=== PATIENT | female | born 1970 | race Caucasian/White ===

== ENCOUNTER 2020-11-24 05:50 | Day surgery (SDC) | payer SELFPAY, OTHER ==
[2020-11-17 11:54] LABS: Hematocrit 34.7 % (37-47); Hemoglobin 11.2 g/dL (12.0-15.0); Mean Corp Hgb Conc 32.3 g/dL (32-36); Mean Corpuscular Hgb 30.1 pg (27.0-32.0); Mean Corpuscular Volume 93.3 fL (81-99); Mean Platelet Vol. 10.4 fl (6.2-12.0); Platelet Count 290 K/mm3 (150-450); RBC Distribution Width CV 13.4 % (11.6-14.6); RBC Distribution Width SD 46.4 fl (35.1-43.9); Red Blood Count 3.72 M/mm3 (4.2-5.4); White Blood Count 4.7 K/mm3 (4.4-11.0)
[2020-11-17 12:02] LABS: Partial Thromboplast Time 25.7 Seconds (24.1-36.2); Prothrombin Time (Protime)PT. 12.2 SECONDS (11.7-14.9)
[2020-11-17 12:31] LABS: Internal QC Validated? YES +Cl - CLEAR BKGD; Pregnancy, Serum, hCG Quali. NEGATIVE Negative
[2020-11-17 12:39] LABS: Follicle Stimulating Hormone 11.4 mIU/mL; Thyroid Stim Hormone (TSH) 3.33 uIU/mL (0.358-3.74)
--- NOTE | 2020-11-23 22:17 | PCM.HP.BLA ---
History and Physical Date of Admission: 11/24/20 Surgical History and Physical Carrie Martines, a 50 year old female 3 1 0 0 4, presents for HTA, Hysteroscopy and D and C on November 24, 2020 at 7:30. -- Menorrhagia -- Very heavy bleeding during menses, and typically bleeds 7-10 days but has had several episodes of 4-6wks of continual bleeding. She notes some Shortness of Breath with exertion, palpitations, and difficulty with critical thinking. Menorrhagia which began approx 3yrs ago. Carrie claims it started gradually and has been present constantly for 3 years. It occurs intermittantly. Carrie characterizes the quality cramping. Severity is moderate but now worsening. Associated signs and symptoms are excessive bleeding, heart palpitations, dizziness.; Associated signs and symptoms are weak feeling; recent Hgb 11.6. Additional comments are: EMBx recently normal; pelvic u/s without polyps or fibroids but approx 2 cm EM lining. MEDICATIONS HISTORY: Patient is also takin. hydrochlorothiazide 25 mg tablet, As Directed 2. hydroxyzine HCl 25 mg tablet, As Directed ALLERGIES: No Known Drug Allergies Infections - Chicken pox childhood Illnesses - hypertension Hospitalizations - see surgery Review of Systems: GENERAL - Denies fever, or chills SKIN - Denies skin changes EYES - Denies visual changes EARS - Denies difficulty hearing NOSE - Denies nasal congestion or bleeding MOUTH - Denies sore throat or difficulty swallowing NECK - Denies pain or swelling RESPIRATORY - Denies shortness of breath or wheezing CARDIOVASCULAR - Denies palpitations or chest pain GASTROINTESTINAL - Denies nausea, vomiting, diarrhea, constipation GENITOURINARY - Denies dysuria, frequency of urination, incontinence of urine MUSCULOSKELETAL - Denies joint or muscle pain NEUROLOGICAL - Denies localized numbness or weakness PSYCHIATRIC - Denies depression or anxiety ENDOCRINE - Denies heat or cold intolerance, weight loss or gain HEMATO-IMMUNOLOGIC - Denies excesive bleeding with cuts SOCIAL HISTORY: Alcohol Use - denies drinking Smoking - denies smoking Diet - balanced Diet Lifestyle - moderate stress lifestyle and Exercise - active Seat Belt Use - occasional Employer - Unemployed Job Description - Housewife Illicit Drug Use - denies use of street drugs Sexual Activity - Spouse-Sig Other Name - Jj Spouse-Sig Other Occupation - [employer] Children Name(s) - 4 children Control - NONE FAMILY HISTORY: MENSTRUAL HISTORY: LMP Known?- YesAmount/Duration - excess amount, Regularity - bleeds between periods, Frequency - variable days, LMP - 11/17/20 PAST PREGNANCIES: Total Pregnancies - 4; Full Term Pregnancies - 3; Premature - 1; Abortions, Induced - 0; Abortions, Spontaneous - 0; Ectopics - 0; Multiple Births - 0; Living Children - 4 SURGICAL HISTORY: 1. 07/07/1986 2. 02/26/1990 3. 06/03/1992 4. 08/25/1993 5. cholecystectomy 6. Laparoscopic Back Surgery, L5 disc PHYSICAL EXAM BP- 140/84 Sitting, Right arm, regular cuff Weight- 173.43812 lbs Height- 69 inch BMI:25.60 CONSTITUTIONAL - NAD, well nourished, and well developed SKIN - No rash, lesions, or ulcers HEENT - Normocephalic, PERRLA, EOMI NECK - No nodes, no nuchal rigidity and thyroid normal size and texture LYMPH NODES - Palpation of lymph nodes in neck and groins within normal limits LUNGS - CTA x2 without wheezes, crackles or rales CARDIAC - Regular rate and rhythm without rubs, murmurs, or gallops ABDOMEN - Without hepatosplenomegaly, distention, masses, rebound, or guarding; normal bowel sounds; no hernias EXTREMITIES - No edema or calf tenderness NEUROLOGICAL - Cranial nerves II-XII grossly intact PSYCHIATRIC - A and O to time, place, person, mood and affectt ASSESSMENT/PLAN: 1. Premenopause Menorrhagia Reviewed EMBx and U/S. Discussed options for treatment and plan to proceed with Dx H/S, D and C and HTA. Discussed RBAs and all questions answered.
[2020-11-24] VITALS (7 sets, daily range): BP systolic 113–139; BP diastolic 68–88; PULSE 52–68; RESP 16; TEMP 36.1–36.6; O2SAT 97–100; BMI 25.0
--- NOTE | 2020-11-24 | EMB_PTH ---
PATIENT: ARLETTE KESSLER [place] [facility] [id number] AGE/SX: 50/F ROOM: RE11/24/[address]: Dr. Romeo Guidry MD : 1970 BED: DIS: 11/24/2020 SPEC #: [id number] RECD: 11/24/20 10:31 STATUS: GUIDO REQ #: [id number] PABLO: 11/24/20 00:[address]: Romeo Guidry DEPT: SURGICAL PATHOLOGY RECD BY: Richard Cao ENTERED: 11/24/20 10:31 SP TYPE: ENDOM BX/C OTHR DR: Dr. Renetta Garcia, DO Tissues: Endometrium, NOS Procedures: Surgery Specimen Level IV HEADER OPERATION: Hysteroscopy, D & C, hydrothermal ablation PRE-OP DIAGNOSIS: Menorrhagia TISSUE SUBMITTED: Endometrial curettings MICROSCOPIC DIAGNOSIS Endometrial curettings: Proliferative endometrium. Fragments of benign endocervical mucosa. SJ:heidi 11/25/2020 MICROSCOPIC DESCRIPTION Slides are reviewed. GROSS DESCRIPTION Received in fixative is one container labeled with the patient's name and designated endometrial curettings. The specimen consists of multiple fragments of pink hemorrhagic soft tissue that in aggregate measure 3 x 2.5 x 0.3 cm. The specimen is totally submitted in one cassette. / LEONARD:heidi 11/24/20 TC:4 CPT: 56699
[2020-11-24 06:18] LABS: Internal QC Validated? YES +Cl - CLEAR BKGD; Pregnancy, Urine Negative Negative
[2020-11-24] MEDS: Lactated Ringers 1,000 ML 100 ML IV ×2 (06:56→08:26)
[2020-11-24] MEDS: Cefotetan 2 GM in 0.9% NS 100 ML IV (07:35)
--- NOTE | 2020-11-24 07:35 | OP.PCM_ITS ---
Report of Operation Date of Procedure: 11/24/20 Pre-Operative Diagnosis: Menorrhagia Post-Operative Diagnosis: Menorrhagia Surgery/Procedure Performed:: Diagnostic Hysteroscopy, Dilation and Curettage, Hydrothermal Ablation Description of Surgical Findings:: 8 cm endometrial cavity without polyps present. A 2 x 3 cm posterior submucous fibroid is noted. Cervix protrudes to within 1-2 cm of the vaginal introitus which would make laparoscopic-assisted vaginal hysterectomy possible if hysterectomy were ever needed. Type of Anesthesia:: General - LMA Anesthesiologist: Jamaal Bruner Specimen's removed: Endometrial curettings Estimated Blood Loss (mL): Minimal Fluids Replaced: Crystalloid Description of Procedure: Surgeon: Romeo Guidry MD, FACOG Indication: This is a T1 year old patient who has been having problems with extremely heavy menses. Conservative measures have not been helpful. Endometrial sampling was benign and pelvic ultrasound at [facility] showed that ablation may be helpful. Pt has been counseled regarding the risks, benefits and alternatives of this procedure and all questions answered. She understands that only about half of patients will have amenorrhea after this procedure. Procedure: Patient taken to the operating room where after induction of general anesthesia the patient was prepped and draped in the usual sterile fashion. Bladder was drained of urine with a catheter. Anterior cervix grasped and cervix was dilated to about 17 [place] size. Hysteroscopic hydrothermal ablation (HTA) unit was place in the cervix and the above findings were noted. HTA unit was removed and the uterus was gently curetted removing all contents. An HTA ablation cycle was then carried out at about 90 degrees Centigrade for 10 minutes with virtually no fluid loss during the procedure. After an appropriate cool down the HTA unit was removed with minimal bleeding noted. The patient tolerated the procedure well and was taken to the recovery room in satisfactory condition. Sponge, instruments and needle counts were all correct. There were no apparent complications of the surgery. Cefotan 2 gms IV was given prior to the procedure. Estimated Blood Loss: Minimal Specimen to Pathology: Endometrial Curettings Grafts/Implants Used: None - Complications None - Admit VTE Documentation VTE Present on Admission: Yes VTE Mechan Device Prophylaxis: SCD's
--- NOTE | 2020-11-24 07:38 | DCINST_ITS ---
Discharge Diet: No Restrictions Discharge Activity: Return to Normal Activity, May Shower, May Take a Tub Bath May resume sexual activity in: 4 weeks Call your doctor if you observe: Fever of 101 or Higher, Inability to urinate, Inability to have a bowel movement, Using more than one pad per hour Additional Instructions: Nothing in the vagina for 3-4 weeks please. Use Ibuprophen 800 mg orally every 8 hours as needed for pain. Can also add Tylenol 1000 mg every 8 hours if needed for pain. If Ibuprophen and Tylenol are not effective then use the Oxycodone but keep in mind it can cause serious constipation issues. Drink lots of water. Call if bleeding more than a pad per hour. Steps and walking are OK. Activity is encouraged but do not over do it !! Allergies/Adverse Reactions: Allergies No Known Allergies Allergy (Verified 11/24/20 06:40) Medications to take at Discharge Cholecalciferol (VIT D3) [Vitamin D] 5,000 unit PO DAILY 11/16/20 Flaxseed Oil 1,000 mg PO DAILY 11/16/20 Hydrochlorothiazide [Hctz] 12.5 mg PO DAILY 11/16/20 Hydroxyzine HCl 25 mg PO PRN PRN 11/16/20 Fluconazole [Diflucan] 150 mg PO CONT #2 tablet 11/24/20 Oxycodone [Oxyir] 5 mg PO Q6H PRN PRN 7 Days #5 tablet 11/24/20 The following prescriptions were given: Fluconazole [Diflucan] 150 mg PO CONT #2 tablet Transmission Status: Pending to [facility] Oxycodone [Oxyir] 5 mg PO Q6H PRN PRN 7 Days #5 tablet PRN Reason: Pain Score 6-10 Transmission Status: Sent to [facility] Primary Care Physician: Renetta Garcia DO [Primary Care Provider] - Test Results: Test results from this visit will be discussed in further detail at your follow- up appointment, if applicable. Please Follow Up With: Romeo Guidry MD When: 3 to 4 weeks
[2020-11-24] MEDS: oxyCODONE 5 MG Tablet PO (09:41)
== END 2020-11-24 12:12 | disposition home or self-care (01) ==
LOC: SDC 05:51 → AC 05:52
PROVIDERS: Anesthesiology; PCP Family Medicine; Referring Provider Obstetrics & Gynecology; Visit Provider Obstetrics & Gynecology
PROC: 0UDB8ZZ Extraction of Endometrium, Via Natural or Artificial Opening Endoscopic (ICD-10-PCS; CPT 58558; principal; 2020-11-24 07:20)
DX: D25.0 Submucous leiomyoma of uterus (principal); Z20.822 Contact with and (suspected) exposure to COVID-19; I10 Essential (primary) hypertension; K21.9 Gastro-esophageal reflux disease without esophagitis; F41.9 Anxiety disorder, unspecified; Z79.899 Other long term (current) drug therapy
CPT/HCPCS: 58563; 36415; 81025; 83001; 84443; 84703; 85027; 85610; 85730; 86850; 86900; 86901; 87426; 88305; J7120; J2405